=== PATIENT | female | born 1985 | race Two or more races ===

== ENCOUNTER → 2024-06-20 10:52 | Outpatient (REF) | payer BC, SELFPAY | LOC: WDC 10:52 | PROVIDERS: ATTENDING PHYSICIAN Student in an Organized Health Care Education/Training Program; FAMILY PHYSICIAN Family Medicine | DX: Z12.31 Encounter for screening mammogram for malignant neoplasm of breast (principal) | CPT/HCPCS: 77063; 77067 ==

== ENCOUNTER 2024-07-07 08:48 | Emergency (ER) | payer BC, SELFPAY ==
[2024-07-07 08:50] VITALS: BP 109/69
--- NOTE | 2024-07-07 09:03 | ED.GENMED ---
History of Present Illness
General
Chief Complaint: DVT/Possible Blood Clot
Time Seen by Provider: 07/07/24 08:54
History of Present Illness
History of Present Illness:
38-year-old female without any significant past medical history presenting for nontraumatic bruising to the left ankle. Patient reports that it has been there for several weeks, persisting. Denies known injury or trauma. Does report that when she
twisted her ankle the other day, did elicit some pain. Denies any clotting issues. 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 Denies known
history of blood clots, or family history of blood clots. Denies chest pain, difficulty breathing, numbness or tingling to her lower extremity. Denies additional acute medical complaints
Phy Exam
Physical Exam
Physical Exam:
General: Well-appearing, no clinical signs of dehydration, nontoxic and in no acute distress
HEENT: protecting airway
Neck: appears supple
CV: Normal heart rate
Resp: No accessory muscle use, no increased work of breathing
Abd: No distention
Extremities: No deformities, no swelling. Small area of bruising at the left lateral ankle with minimal tenderness on palpation. Distal sensation and pulses intact. Range of motion intact. No erythema or warmth of the lower extremity
Neuro: alert, no focal neurologic deficit
: deferred
Rectal: deferred
Psych: Normal affect
Skin: Intact
Course
Orders/Labs/Results
Orders:
Orders
07/07/24 08:59
Ankle, left 3 view CR [CR Ankle - Left Min 3 Views ] Urgent
Comment:
Reason For Exam: bruising
US Legs, Left [US Periph Venous LOWER Ext LT] Urgent
Comment:
Reason For Exam: non-traumatic bruising
07/07/24 09:07
Complete Blood Count/With Diff Urgent
Comprehensive Metabolic Panel Urgent
Abnormal Lab Results
07/07/24
09:07
RBC 4.16 L 10^6/uL
(4.20-5.40)
Glucose 57 L mg/dl
(70-99)
Alkaline Phosphatase 36 L U/L
(38-126)
07/07/24 09:07
07/07/24 09:07
Vital Signs
Initial and Last Documented VS:
Initial Vital Signs
Temp Pulse Resp BP Pulse Ox
98.4 F 75 18 109/69 99
07/07/24 08:50 07/07/24 08:50 07/07/24 08:50 07/07/24 08:50 07/07/24 08:50
Last Documented Vital Signs
Temp Pulse Resp BP Pulse Ox
98.4 F 75 18 109/69 99
07/07/24 08:50 07/07/24 08:50 07/07/24 08:50 07/07/24 08:50 07/07/24 08:50
MDM/Problems Addressed
MDM/Problems Addressed:
38-year-old female presenting for nontraumatic bruising to the left ankle. Vital signs on arrival are normal
On exam patient is resting comfortably, no acute distress or discomfort. Reassuring examination of left lower extremity without significant swelling or deformity. No infectious findings, without erythema or warmth. No neurovascular compromise.
Patient is primarily concerned for a blood clot given her travel history. Lower suspicion given appearance, however feel reasonable to obtain ultrasound imaging. Given location of bruising, will also obtain x-ray imaging. Given duration of
symptoms, will screen with CBC to ensure normal platelet count and blood counts.
09:55 -Labs unremarkable. X-ray without fracture or malalignment. Ultrasound without any evidence of DVT. At this time suspect uncomplicated contusion. Feel stable for discharge with outpatient primary care follow-up. Return precautions
discussed and patient verbalized understanding
*Critical Care Note
Total Time (30-74mins, 75-104mins- exclusive of procedures): Not Applicable
ED Attending Note
-
Portions of this chart may have been created with voice recognition software.� Occasional wrong word or��sound alike� substitutions may have occurred due to the inherent limitations of voice recognition software.
Discharge Plan
Departure
Patient Disposition: Home (Routine Discharge)
Date of Disposition: 07/07/24
Time of Disposition: 09:56
Patient with high blood pressure during this ER visit?: No
Condition: Good
Discharge Problem:
Contusion of ankle, left
Instructions: Contusion
Referrals:
Braydon Felder DO [Family Provider] -
Activity Restrictions/Additional Instructions:
You were seen in the emergency department for bruising to your left ankle
You were found to have a normal x-ray and ultrasound of your lower extremity, no evidence of any blood clot. He also had normal laboratory analysis. Please follow-up with your primary care doctor
Please follow-up closely with your primary care physician.
Return to the emergency department for any worsening of your symptoms, or any development of chest pain, difficulty breathing, abdominal pain with persistent vomiting and inability to tolerate food or liquid by mouth (concern for dehydration),
weakness, headache or confusion, fever greater than 100.4, or any additional symptoms that are concerning to you.
Thank you for choosing [facility].
Interventions
Interventions:
*Risk Screen - Suicide Last Done: 07/07/24 08:50
*General Assessment Last Done: 07/07/24 08:50
*Neglect/Abuse Screening Last Done: 07/07/24 08:50
*ED- Fall Risk Assessment Last Done: 07/07/24 08:50
*ED COVID-19 Vaccine History Last Done: 07/07/24 08:50
ED- Cardiac Assessment Last Done: 07/07/24 09:09
ED- Pulmonary Assessment Last Done: 07/07/24 09:09
ED-Peripheral Vascular Assessment Last Done: 07/07/24 09:09
ED-Skin Assessment Last Done: 03/31/25 09:09
Discharge Date and Time
Print Language: MEXICAN
[2024-07-07 09:37] LABS: % Basophils 0.8 % (0-2); % Eosinophils 0.8 % (0-6); % Immature Granulocytes 0.4 % (0-0.5); % Lymphocytes 37.2 % (20.5-51.1); % Monocytes 7.6 % (1.7-9.3); % Neutrophils 53.2 % (42.2-75.2); Absolute Monocytes 0.4 10^3/uL (0.1-0.6); Absolute Neutrophils 2.8 10^3/uL (1.4-6.5); Hematocrit 37.6 % (37.0-47.0); Hemoglobin 12.4 g/dL (12.0-16.0); Mean Corpuscular Hgb 29.8 pg (27.0-31.0); Mean Corpuscular Volume 90.4 fL (81.0-99.0); Nucleated Red Blood Cells % 0 %; Platelet Count 228 10^3/uL (130-400); Red Blood Cell Count 4.16 10^6/uL (4.20-5.40); Red Cell Dist. Width 12.8 % (11.5-14.5); White Blood Cell Count 5.2 10^3/uL (4.8-10.8)
[2024-07-07 09:44] LABS: ALT (SGPT) 11 U/L (0-35); AST (SGOT) 16 U/L (14-36); Albumin 3.7 g/dl (3.5-5.0); Alkaline Phosphatase 36 U/L (38-126); Blood Urea Nitrogen 13 mg/dl (7-17); Calcium 8.7 mg/dl (8.4-10.2); Carbon Dioxide 27 mmol/L (22-30); Chloride 107 mmol/L (98-107); Glucose 57 mg/dl (70-99); Potassium 4.6 mmol/L (3.5-5.1); Sodium 138 mmol/L (135-145); Total Bilirubin 0.6 mg/dl (0.2-1.3); Total Protein 6.6 g/dl (6.3-8.2); eGFR > 60.00
[2024-07-07 10:45] VITALS: BP 102/69
== END 2024-07-07 10:45 | disposition home or self-care (01) ==
LOC: EMR 08:48
PROVIDERS: EMERGENCY PHYSICIAN Student in an Organized Health Care Education/Training Program; FAMILY PHYSICIAN Family Medicine
DX: S90.02XA Contusion of left ankle, initial encounter (principal); X50.1XXA Overexertion from prolonged static or awkward postures, initial encounter
CPT/HCPCS: 99284; 73610; 80053; 85025; 93971

== ENCOUNTER → 2024-09-16 14:58 | Outpatient (REF) | payer BC, SELFPAY | LOC: WDC 14:58 | PROVIDERS: ATTENDING PHYSICIAN Student in an Organized Health Care Education/Training Program; FAMILY PHYSICIAN Family Medicine | DX: R92.2 Inconclusive mammogram (principal) | CPT/HCPCS: 76641 ==